=== PATIENT | female | born 1995 | race Caucasian/White ===

== ENCOUNTER 2017-08-02 09:01 | Day surgery (SDC) | payer BC ==
--- NOTE | 2017-07-25 20:14 | HP ---
PREOPERATIVE HISTORY AND PHYSICAL: DATE OF ADMISSION/SURGERY: 08/02/17 DATE OF OFFICE VISIT/ENCOUNTER: 07/25/17 ATTENDING SURGEON: Amber Ritter MD* (dictated by CATE Sue). OPERATIVE PROCEDURE: Left wrist ganglion cyst excision. CHIEF COMPLAINT: Ganglion cyst, left wrist. HISTORY OF PRESENT ILLNESS: This is a 22-year-old female, who complains of a lump on the dorsal aspect of her left wrist that has been present for over a year now. She did have an injury around that same time that she first noticed the cyst, but she is not certain that it is connected to the lump. The lump is becoming more bothersome especially with weightbearing and in wrist extension. She denies any numbness or tingling associated with it. She is interested in having the mass removed surgically and has consented to proceed with a left wrist ganglion cyst excision. PAST MEDICAL HISTORY: Low back disk bulging. PAST SURGICAL HISTORY: 1. Right shoulder surgery x2. 2. Breast reduction. CURRENT MEDICATIONS: 1. Meloxicam 15 mg daily. 2. Junel Fe /20 mg/mcg 1 daily. FAMILY MEDICAL HISTORY: Noncontributory. 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 She denies tobacco use and recreational drug use. She does drink alcohol on occasion. REVIEW OF SYSTEMS: General: Negative for fevers, chills, or night sweats. No known anesthesia problems. HEENT: Negative for headache, lightheadedness, or syncopal episodes. Integumentary: Negative for abrasions, lesions, or open wounds. Cardiothoracic: Negative for hypertension, chest pain, palpitations, or edema. Pulmonary: Negative for shortness of breath with exertion, chronic cough, COPD. GI: Negative for nausea, vomiting, diarrhea, constipation, or GERD. : Negative for nocturia, urinary frequency, urgency, history of UTIs, or kidney problems. Musculoskeletal: Positive for current complaint and positive for chronic low back pain. Negative for history of fractures. Neurologic: Negative for paresthesias, numbness, history of seizure, stroke, or epilepsy. Endocrine: Negative for diabetes or thyroid issues. Hematologic: Negative for easy bruising, anemia, excessive bleeding, or history of DVT. Infectious Disease: Negative for history of MRSA, hepatitis C, and HIV. PHYSICAL EXAMINATION GENERAL: Well-developed, well-nourished, 22-year-old female in no acute distress. VITAL SIGNS: Height 5 feet 4-1/2 inches, weight 173 pounds, pulse rate 61, blood pressure 115/78. HEENT: Normocephalic, atraumatic. Pupils are equal, round, and reactive to light and accommodation. Extraocular movements are intact. Throat is clear. NECK: Supple. No palpable lymph nodes. PULMONARY: Lungs are clear to auscultation bilaterally. No wheezes, rales, or rhonchi. CARDIOVASCULAR: Regular rate and rhythm. S1, S2. No murmurs, rubs, or gallops. No edema. ABDOMEN: Positive bowel sounds, soft, nontender. NEUROLOGICAL: Alert and oriented x3. Cranial nerves II through XII are intact. Sensation is intact to light touch. MUSCULOSKELETAL: On exam of her left wrist, there is a small cystic mass about a centimeter in diameter at the dorsal aspect of the radiocarpal joint. It is mildly tender to palpation. She has full range of motion of her wrist and a little bit of pain with full extension. She has full flexion and extension of her fingers and neurovascular function is intact. IMAGING STUDIES: X-rays AP, lateral, and oblique of the left wrist shows slight ulnar positive variance but otherwise the x-rays look normal. IMPRESSION: Left dorsal wrist ganglion. PLAN: The patient is scheduled to undergo a left wrist ganglion cyst excision with Dr. Ritter on 08/02/17. She will return to the office 10 to 14 days postop for followup and suture removal. A prescription for Ultracet was e-scribed to the patient's pharmacy for postoperative pain management. CATE SUE [id number]/[facility] #: [id number] [facility]
[~2017-08-02 09:01] MED LIST: Buffered Lidocaine 0.9% SYRIN* 5 ML/SYR SYRINGE INTRADERM ONE
[2017-08-02] MEDS ORDERED: Lidocaine 1% INJ* 10 MG/ML 30 ML SDV ONE (09:19)
[2017-08-02] MEDS ORDERED: Midazolam* 1 MG/ML 5 ML VIAL (5 MG) ONE (09:44)
[2017-08-02] MEDS ORDERED: fentaNYL* 50 MCG/ML 2 ML VIAL (100 MCG VIAL) ONE (09:50)
[2017-08-02] MEDS ORDERED: oxyCODONE TAB* 5 MG TAB PO PRN (10:10)
[2017-08-02] MEDS ORDERED: HYDROcodone/ACETAMIN 5-325 MG* 1 TAB PO PRN (10:10)
[2017-08-02] MEDS ORDERED: Ondansetron INJ* 2 MG/ML VIAL IV PRN (10:10)
[2017-08-02] MEDS ORDERED: fentaNYL* 50 MCG/ML 2 ML VIAL (100 MCG VIAL) IV PRN (10:10)
[2017-08-02 10:28] VITALS: BP 95/70
--- NOTE | 2017-08-03 00:59 | OP ---
DATE OF OPERATION: 08/02/17 [facility] DATE OF : [birth year] SURGEON: Amber Ritter MD ANESTHESIOLOGIST: Abdelrahman Rodriguez MD ANESTHESIA: Local MAC. PRE-OP DIAGNOSIS: Left dorsal wrist ganglion. POST-OP DIAGNOSIS: Left dorsal wrist ganglion. OPERATIVE PROCEDURE: Removed dorsal wrist ganglion left side. ESTIMATED BLOOD LOSS: 0. TOURNIQUET TIME: 10 minutes. INDICATIONS FOR PROCEDURE: Bridget is a 22-year-old female with a painful mass on the dorsal aspect of her left wrist. She presents for removal. DESCRIPTION OF PROCEDURE: The patient was brought to the operating room, was given a sedation anesthetic and a local infiltration of 10 cc of 1% plain lidocaine in the dorsal aspect of her left wrist. The skin of her left hand and forearm was prepped and draped in the usual sterile fashion. The hand and forearm were exsanguinated and the tourniquet elevated to 250 mmHg. A transverse incision was made centered over the mass. We dissected through the subcutaneous tissue and the extensor tendons were retracted. There was a broad- based ganglion cyst emanating from the dorsal wrist capsule, it was removed with the portion of the capsule overlying the scapholunate ligament. The edges of the capsule and the dorsal aspect of the scapholunate ligament were cauterized with the Bovie. The wound was irrigated and the skin edges reapproximated with 4-0 nylon suture. The wound was dressed with Xeroform, 4x4 , Webril, and an Stanley wrap. The patient tolerated the procedure well and was brought to the recovery room in good condition. [id number]/[facility] #: [id number] [facility]
== END 2017-08-02 10:44 | disposition home or self-care (01) ==
LOC: OREAST 09:01
PROVIDERS: ATTEND Orthopaedic Surgery
DX: M67.432 Ganglion, left wrist (principal)
CPT/HCPCS: 81025; 88304; J2001; J2250; J3010